=== PATIENT | male | born 1965 | race Caucasian/White ===

== ENCOUNTER → 2018-03-20 | Outpatient (CLI) | payer BC ==
[~2018-03-20] VITALS: Ht 175.3 cm; Wt 74.9 kg
[~2018-03-20] MED LIST: ENULOSE10 GM/15 M PO; KLONOPIN0.5 M1 PO; KOMBIGLYZE XR1 EAC1 PO; LEVEMIR FL100 UNIT/1 SC; LEXAPRO20 MG PO; LORTAB 7.5-3251 EACH PO; MEPHYTON5 MG PO; NOHOMEMEDS; OXYCONTIN20 MG PO; ZEGERID OTC 201 EACH PO; ZESTRIL10 MG PO; ZOCOR80 MG PO
== END | disposition home or self-care (01) ==
LOC: AMB 13:26
PROVIDERS: Specialist
PROC: 0DJ08ZZ Inspection of Upper Intestinal Tract, Via Natural or Artificial Opening Endoscopic (ICD-10-PCS; principal; 2018-03-20)
DX: Z01.818 Encounter for other preprocedural examination (principal); K74.60 Unspecified cirrhosis of liver; K76.6 Portal hypertension; K31.89 Other diseases of stomach and duodenum; K29.70 Gastritis, unspecified, without bleeding; Z86.010 Personal history of colon polyps; I10 Essential (primary) hypertension; M10.9 Gout, unspecified; E78.5 Hyperlipidemia, unspecified; F10.11 Alcohol abuse, in remission; E11.42 Type 2 diabetes mellitus with diabetic polyneuropathy; Z79.4 Long term (current) use of insulin; Z87.891 Personal history of nicotine dependence
CPT/HCPCS: 82948; J2250

== ENCOUNTER → 2018-04-17 | Outpatient (CLI) | payer BC ==
[~2018-04-17] VITALS: Ht 175.3 cm; Wt 79.4 kg
== END | disposition home or self-care (01) ==
LOC: AMB 13:44
PROVIDERS: Specialist
PROC: 0DJD8ZZ Inspection of Lower Intestinal Tract, Via Natural or Artificial Opening Endoscopic (ICD-10-PCS; principal; 2018-04-17)
DX: Z12.11 Encounter for screening for malignant neoplasm of colon (principal); K57.30 Diverticulosis of large intestine without perforation or abscess without bleeding; K64.8 Other hemorrhoids; Z86.010 Personal history of colon polyps; E11.40 Type 2 diabetes mellitus with diabetic neuropathy, unspecified; E78.5 Hyperlipidemia, unspecified; K21.9 Gastro-esophageal reflux disease without esophagitis; K74.60 Unspecified cirrhosis of liver; F10.11 Alcohol abuse, in remission; M10.9 Gout, unspecified; Z79.4 Long term (current) use of insulin; Z87.891 Personal history of nicotine dependence
CPT/HCPCS: 82948; J2405

== ENCOUNTER → 2018-07-03 | Outpatient (CLI) | payer BC ==
[~2018-07-03] VITALS: Ht 175.3 cm; Wt 79.4 kg
[2018-07-03 08:18] VITALS: BP 114/61
[2018-07-03 09:07] VITALS: BP 112/63
[2018-07-03 09:53] VITALS: BP 128/62
== END | disposition home or self-care (01) ==
LOC: IVINF 06-25 08:00
DX: D69.6 Thrombocytopenia, unspecified (principal); L50.9 Urticaria, unspecified
CPT/HCPCS: 36430; 86999; P9035